=== PATIENT | male | born 1965 | race African-American/Black ===

== ENCOUNTER 2018-02-12 19:04 | Emergency (ER) | payer SELFPAY ==
[2018-02-12 19:26] VITALS: BP 158/97
--- NOTE | 2018-02-12 20:22 | UC ---
Kalyn Burnette Elizabeth, scribed for Ana Coppola MD on 02/12/18 at 2014 . Back Pain HPI - HPI Summary HPI Summary: This patient is a 53 year old M presenting to [facility] with a chief complaint of sharp pain from his lower back down his left leg all the way to the bottom of his foot since 3 days ago. The patient rates the pain 9/10 in severity. Symptoms aggravated by standing for long periods of time. Patient reports that he has had to stand for long stretches of time for his [employer] job. Symptoms alleviated by use of heating pad and Motrin. Pt states this feels similar to his past 2 episodes of sciatica. Pt previously had physical therapy with improvement. no trauma. No changes to bowel/bladder. No other complaints. . The patient has been taking ibuprofen for pain. The patient has hx of back pain and sciatica. Pts medications reviewed this visit - History of Current Complaint Chief Complaint: UCLowerExtremity Stated Complaint: BACK PAIN Time Seen by Provider: 02/12/18 19:59 Hx Obtained From: Patient Onset/Duration: Gradual Onset, Lasting Days - 3 days, Still Present, Worse Since - today Timing: Constant, Lasting Days - 3 days Severity Initially: Moderate Severity Currently: Moderate Pain Intensity: 9 Pain Scale Used: 0-10 Numeric Character: Sharp Aggravating Factor(s): Other - standing Alleviating Factor(s): Heat - Allergies/Home Medications Allergies/Adverse Reactions: Allergies Allergy/AdvReac Type Severity Reaction Status Date / Time No Known Allergies Allergy Verified 02/12/18 19:26 PMH/Surg Hx/FS Hx/Imm Hx - Additional Past Medical History Additional PMH: hx of back problems, sciatica Previously Healthy: Yes - Surgical History Surgical History: None - Family History Known Family History: Positive: Diabetes - mother - Social History 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 [employer] Lives: With Family Alcohol Use: Rare Alcohol Amount: Pt at [facility] for alcohol rehab Substance Use Type: None Substance Use Comment - Amount & Last Used: 4 wks ago last use Smoking Status (MU): Light Every Day Tobacco Smoker Type: Cigarettes Household Exposure Type: Cigarettes Review of Systems Constitutional: Negative - negative fever ENT: Negative - negative epistaxis Gastrointestinal: Negative - negative vomiting Musculoskeletal: Myalgia - lower back pain, left leg pain down to bottom of left foot All Other Systems Reviewed And Are Negative: Yes Physical Exam - Summary Physical Exam Summary: Vital Signs Reviewed: Yes A+Ox3, no distress ambulating without difficulty Eyes: Conjunctiva Clear ENT: Hearing grossly normal neck: supple Respiratory: Positive: No respiratory distress, No accessory muscle use CTA throughout no w/r Cardiovascular: skin color reflect adequate perfusion RRR nl s1, s2 no m/r Musculoskeletal Exam: RIOS x 4 without difficulty no pain spinous process c/t/l/ s + TTP left butttock with direct palp + flex/ext knee, ankle without difficult Neurological: Positive: Alert, ambulatory without difficulty 2+ patella without clonus equal bilat sensation Psychological: Positive: Normal Response To Family Skin: Positive: no rash, no ecchymosis Triage Information Reviewed: Yes Vital Signs: Initial Vital Signs Temp 99.3 F 02/12/18 19:19 Pulse 67 02/12/18 19:19 Resp 20 02/12/18 19:19 BP 158/97 02/12/18 19:19 Pulse Ox 97 02/12/18 19:19 Back Pain Course/Dx - Course Course Of Treatment: pt with discomfort left buttock wth radiation lateral aspect left left to knee. pt without trauma. pt non cocnerning neuro exam. pt with pain in left buttock causing radiation. will r prednisone. heat. stretch. motrin/apap. PT referral. work note. pt comfortable and in agreement with plan - Differential Dx/Diagnosis Provider Diagnoses: left sciatc nerve pain Discharge - Sign-Out/Discharge Documenting (check all that apply): Discharge/Admit/Transfer - Discharge Plan Condition: Stable Disposition: HOME Discharge Disposition Comment: discharge home Prescriptions: predniSONE [Prednisone 20 MG TAB] 20 mg PO DAILY #11 tablet Patient Education Materials: Sciatica (ED) Forms: *Work Release Referrals: Stone Leong MD [Primary Care Provider] - Additional Instructions: - Take prednisone as prescribed until gone - alternate ibuprofen (advil, motrin) and Tylenol every 3 hours pain. Take with food. do NOT take for more than 2-3 days - apply heat to your low back and buttock - once your muscles are warm, slow gentle stretching exercise - Contact your doctor tomorrow to schedule a follow-up appointment. You should also contact a physical therapist for follow-up - If you develop leg weakness, changes to bowel or bladder function or any concerns it is recommended you go to the emergency department - Billing Disposition and Condition Condition: STABLE Disposition: Home The documentation as recorded by the Kalyn wade Elizabeth accurately reflects the service I personally performed and the decisions made by me, Ana Coppola MD.
== END 2018-02-12 20:30 | disposition home or self-care (01) ==
LOC: UCEAST 19:04
DX: M54.32 Sciatica, left side (principal); F17.210 Nicotine dependence, cigarettes, uncomplicated
CPT/HCPCS: 99212; G0463